=== PATIENT | female | born 1965 | race Caucasian/White ===

== ENCOUNTER 2020-11-18 11:30 | Outpatient (RCR) | payer OTHER, SELFPAY | END 2020-11-21 11:28 | disposition other institution (70) | LOC: HO.OT 11:30 | PROVIDERS: PCP Pediatrics; Visit Provider Orthopaedic Surgery | DX: M65.4 Radial styloid tenosynovitis [de Quervain] (principal) | CPT/HCPCS: 97035; 97110; 97140; 97165 ==